=== PATIENT | male | born 1990 | race Caucasian/White ===

== ENCOUNTER 2019-06-23 17:34 | Inpatient (IN) | payer OTHER ==
[2019-06-24 08:58] LABS: ABS Basophils 0.1 10^3/ul (0-0.2); ABS Eosinophils 0.1 10^3/ul (0-0.6); ABS Lymphocytes 1.6 10^3/ul (1.0-4.8); ABS Monocytes 0.4 10^3/ul (0-0.8); Eosinophil % 1.3 %; Hematocrit 43 % (42-52); Hemoglobin 15.1 g/dL (14.0-18.0); Mean Corpuscular HGB Conc 35 g/dL (31-36); Mean Corpuscular Hemoglobin 31 pg (27-31); Mean Corpuscular Volume 89 fL (80-94); Mean Platelet Volume 8.3 fL (7.4-10.4); Nucleated Red Blood Cells % 0.1; Platelet Count 211 10^3/uL (150-450); Red Blood Count 4.86 10^6 /uL (4.18-5.48); Red Cell Distribution Width 13 % (10-15); White Blood Count 4.8 10^3/uL (3.5-10.8)
[2019-06-24 09:16] LABS: ALT 10 U/L (7-52); AST 11 U/L (13-39); Albumin 4.1 g/dL (3.2-5.2); Albumin/Globulin Ratio 1.6 (1-3); Alkaline Phosphatase 59 U/L (34-104); Anion Gap 7 mmol/L (2-11); BUN/Creatinine Ratio 27.4 (8-20); Blood Urea Nitrogen 17 mg/dL (6-24); CO2 Carbon Dioxide 25 mmol/L (22-32); Calcium 9.1 mg/dL (8.6-10.3); Chloride 107 mmol/L (101-111); EGFR African American 188.3 (>60); EGFR Non-African American 155.6 (>60); Globulin 2.5 g/dL (2-4); Glucose 79 mg/dL (70-100); Potassium 3.8 mmol/L (3.5-5.0); Sodium 139 mmol/L (135-145); Total Protein 6.6 g/dL (6.4-8.9)
[2019-06-24 09:25] LABS: Acetaminophen < 15 mcg/mL; Alcohol, S < 10 mg/dL (<10); Salicylate < 2.50 mg/dL (<30)
[2019-06-24 09:41] LABS: TSH (Thyroid Stimulating Horm) 1.03 mcIU/mL (0.34-5.60)
[2019-06-24 16:33] LABS: Urine Appearance Clear; Urine Bilirubin Negative (Negative); Urine Blood Negative (Negative); Urine Color Colorless; Urine Glucose Negative (Negative); Urine Ketones Negative (Negative); Urine Nitrite Negative (Negative); Urine Protein Negative (Negative); Urine Specific Gravity 1.001 (1.010-1.030); Urine Urobilinogen Negative (Negative)
[2019-06-24 16:46] LABS: Urine Benzodiazepine Screen None Detected (None Detect); Urine Opiates Screen None Detected (None Detect)
[2019-06-25] MEDS: Ondansetron ODT 4 mg TAB 4 MG TAB SL PRN (09:10)
[2019-06-27] MEDS: Fluoxetine LIQ 20 MG/5 ML UDC PO SCH (10:18)
[2019-06-27] MEDS: Ondansetron ODT 4 mg TAB 4 MG TAB SL PRN (22:50)
[2019-06-28] MEDS: Fluoxetine LIQ 20 MG/5 ML UDC PO SCH (11:40)
[2019-06-29] MEDS: Ondansetron ODT 4 mg TAB 4 MG TAB SL PRN ×2 (02:52→20:25)
[2019-06-29] MEDS ORDERED: Influenza VAC *QUAD* 2019-20* 0.5 ML SYRINGE IM ONE (09:00)
[2019-06-29] MEDS: Fluoxetine LIQ 20 MG/5 ML UDC PO SCH (09:53)
[2019-06-30] MEDS: Ondansetron ODT 4 mg TAB 4 MG TAB SL PRN (05:40)
[2019-06-30] MEDS: Fluoxetine LIQ 20 MG/5 ML UDC PO SCH (09:00)
[2019-07-01] MEDS: Fluoxetine LIQ 20 MG/5 ML UDC PO SCH (08:33)
[2019-07-02] MEDS: Fluoxetine LIQ 20 MG/5 ML UDC PO SCH (09:02)
[2019-07-03] MEDS: Fluoxetine LIQ 20 MG/5 ML UDC PO SCH (09:14)
[2019-07-03] MEDS: Ondansetron ODT 4 mg TAB 4 MG TAB SL PRN (21:21)
[2019-07-04] MEDS: Fluoxetine LIQ 20 MG/5 ML UDC PO SCH (08:24)
[2019-07-05] MEDS: Fluoxetine LIQ 20 MG/5 ML UDC PO SCH (10:59)
[2019-07-05] MEDS: Ondansetron ODT 4 mg TAB 4 MG TAB SL PRN (10:59)
[2019-07-06] MEDS: Fluoxetine LIQ 20 MG/5 ML UDC PO SCH (09:45)
[2019-07-07] MEDS: Fluoxetine LIQ 20 MG/5 ML UDC PO SCH (09:07)
[2019-07-08] MEDS: Fluoxetine LIQ 20 MG/5 ML UDC PO SCH (10:14)
[2019-07-09] MEDS: Fluoxetine LIQ 20 MG/5 ML UDC PO SCH (08:06)
[2019-07-10] MEDS: Fluoxetine LIQ 20 MG/5 ML UDC PO SCH (07:34)
[2019-07-11] MEDS: Fluoxetine LIQ 20 MG/5 ML UDC PO SCH (08:03)
[2019-07-12] MEDS: Fluoxetine LIQ 20 MG/5 ML UDC PO SCH (09:35)
[2019-07-13] MEDS: Fluoxetine LIQ 20 MG/5 ML UDC PO SCH (08:05)
[2019-07-14] MEDS: Fluoxetine LIQ 20 MG/5 ML UDC PO SCH (07:21)
[2019-07-15] MEDS: Fluoxetine LIQ 20 MG/5 ML UDC PO SCH (08:44)
[2019-07-16] MEDS: Fluoxetine LIQ 20 MG/5 ML UDC PO SCH (09:10)
[2019-07-17] MEDS: Fluoxetine LIQ 20 MG/5 ML UDC PO SCH (11:45)
[2019-07-18] MEDS: Fluoxetine LIQ 20 MG/5 ML UDC PO SCH (09:40)
[2019-07-19] MEDS: Fluoxetine LIQ 20 MG/5 ML UDC PO SCH (08:41)
[2019-07-20] MEDS: Fluoxetine LIQ 20 MG/5 ML UDC PO SCH (07:33)
[2019-07-21] MEDS: Fluoxetine LIQ 20 MG/5 ML UDC PO SCH (07:33)
[2019-07-22] MEDS: Fluoxetine LIQ 20 MG/5 ML UDC PO SCH (10:05)
[2019-07-22] MEDS: Ondansetron ODT 4 mg TAB 4 MG TAB SL PRN (12:06)
[2019-07-23] MEDS: Fluoxetine LIQ 20 MG/5 ML UDC PO SCH (08:04)
[2019-07-24] MEDS: Fluoxetine LIQ 20 MG/5 ML UDC PO SCH (09:08)
[2019-07-25] MEDS: Fluoxetine LIQ 20 MG/5 ML UDC PO SCH (08:56)
[2019-07-26] MEDS: Fluoxetine LIQ 20 MG/5 ML UDC PO SCH (08:14)
[2019-07-27] MEDS: Fluoxetine LIQ 20 MG/5 ML UDC PO SCH (09:05)
[2019-07-28] MEDS: Fluoxetine LIQ 20 MG/5 ML UDC PO SCH (11:00)
[2019-07-29] MEDS: Fluoxetine LIQ 20 MG/5 ML UDC PO SCH (09:32)
[2019-07-30] MEDS: Fluoxetine LIQ 20 MG/5 ML UDC PO SCH (08:39)
[2019-07-31] MEDS: Fluoxetine LIQ 20 MG/5 ML UDC PO SCH (09:49)
[2019-08-01] MEDS: Fluoxetine LIQ 20 MG/5 ML UDC PO SCH (07:16)
[2019-08-01] MEDS ORDERED: Lorazepam PYXIS KEY ONE (09:42)
[2019-08-02] MEDS: Fluoxetine LIQ 20 MG/5 ML UDC PO SCH (08:50)
[2019-08-03] MEDS: Ondansetron ODT 4 mg TAB 4 MG TAB SL PRN (02:57)
[2019-08-03] MEDS: Fluoxetine LIQ 20 MG/5 ML UDC PO SCH (09:29)
[2019-08-04] MEDS: Fluoxetine LIQ 20 MG/5 ML UDC PO SCH (08:38)
[2019-08-05] MEDS: Fluoxetine LIQ 20 MG/5 ML UDC PO SCH (08:04)
[2019-08-05] MEDS: Ondansetron ODT 4 mg TAB 4 MG TAB SL PRN (21:49)
[2019-08-06] MEDS: Fluoxetine LIQ 20 MG/5 ML UDC PO SCH (07:29)
[2019-08-07] MEDS: Fluoxetine LIQ 20 MG/5 ML UDC PO SCH (09:18)
[2019-08-07] MEDS: Ondansetron ODT 4 mg TAB 4 MG TAB SL PRN (20:10)
[2019-08-08] MEDS: Fluoxetine LIQ 20 MG/5 ML UDC PO SCH (08:05)
[2019-08-09] MEDS: Fluoxetine LIQ 20 MG/5 ML UDC PO SCH (08:28)
[2019-08-10] MEDS: Fluoxetine LIQ 20 MG/5 ML UDC PO SCH (07:51)
[2019-08-11] MEDS: Fluoxetine LIQ 20 MG/5 ML UDC PO SCH (07:49)
[2019-08-12] MEDS: Fluoxetine LIQ 20 MG/5 ML UDC PO SCH (09:08)
[2019-08-13] MEDS: Fluoxetine LIQ 20 MG/5 ML UDC PO SCH (08:00)
[2019-08-14] MEDS: Fluoxetine LIQ 20 MG/5 ML UDC PO SCH (08:09)
[2019-08-15] MEDS: Fluoxetine LIQ 20 MG/5 ML UDC PO SCH (08:50)
[2019-08-16] MEDS: Fluoxetine LIQ 20 MG/5 ML UDC PO SCH (07:58)
[2019-08-17] MEDS: Fluoxetine LIQ 20 MG/5 ML UDC PO SCH (08:13)
[2019-08-18] MEDS: Fluoxetine LIQ 20 MG/5 ML UDC PO SCH (08:50)
[2019-08-19] MEDS: Fluoxetine LIQ 20 MG/5 ML UDC PO SCH (10:26)
[2019-08-20] MEDS: Fluoxetine LIQ 20 MG/5 ML UDC PO SCH (10:15)
[2019-08-21] MEDS: Fluoxetine LIQ 20 MG/5 ML UDC PO SCH (08:08)
[2019-08-22] MEDS: Fluoxetine LIQ 20 MG/5 ML UDC PO SCH (07:23)
[2019-08-23] MEDS: Fluoxetine LIQ 20 MG/5 ML UDC PO SCH (07:58)
[2019-08-24] MEDS: Fluoxetine LIQ 20 MG/5 ML UDC PO SCH (08:01)
[2019-08-24] MEDS ORDERED: Lorazepam PYXIS KEY ONE (10:08)
[2019-08-25] MEDS: Fluoxetine LIQ 20 MG/5 ML UDC PO SCH (10:07)
[2019-08-26] MEDS: Fluoxetine LIQ 20 MG/5 ML UDC PO SCH (08:51)
[2019-08-27] MEDS: Fluoxetine LIQ 20 MG/5 ML UDC PO SCH (08:51)
[2019-08-28] MEDS: Fluoxetine LIQ 20 MG/5 ML UDC PO SCH (08:00)
[2019-08-29] MEDS: Fluoxetine LIQ 20 MG/5 ML UDC PO SCH (09:12)
[2019-08-30] MEDS: Fluoxetine LIQ 20 MG/5 ML UDC PO SCH (09:06)
[2019-08-31] MEDS: Fluoxetine LIQ 20 MG/5 ML UDC PO SCH (07:43)
[2019-09-01] MEDS: Fluoxetine LIQ 20 MG/5 ML UDC PO SCH (07:56)
[2019-09-02] MEDS: Fluoxetine LIQ 20 MG/5 ML UDC PO SCH (10:19)
[2019-09-03] MEDS: Fluoxetine LIQ 20 MG/5 ML UDC PO SCH (09:02)
[2019-09-04] MEDS: Fluoxetine LIQ 20 MG/5 ML UDC PO SCH (08:00)
[2019-09-05] MEDS: Fluoxetine LIQ 20 MG/5 ML UDC PO SCH (09:14)
[2019-09-06] MEDS: Fluoxetine LIQ 20 MG/5 ML UDC PO SCH (09:15)
[2019-09-07] MEDS: Fluoxetine LIQ 20 MG/5 ML UDC PO SCH (07:42)
[2019-09-08] MEDS: Fluoxetine LIQ 20 MG/5 ML UDC PO SCH (08:10)
[2019-09-09] MEDS: Fluoxetine LIQ 20 MG/5 ML UDC PO SCH (07:46)
[2019-09-10] MEDS: Fluoxetine LIQ 20 MG/5 ML UDC PO SCH (09:12)
[2019-09-11] MEDS: Fluoxetine LIQ 20 MG/5 ML UDC PO SCH (08:18)
[2019-09-12] MEDS: Fluoxetine LIQ 20 MG/5 ML UDC PO SCH (09:10)
[2019-09-13] MEDS: Fluoxetine LIQ 20 MG/5 ML UDC PO SCH (08:29)
[2019-09-14] MEDS: Fluoxetine LIQ 20 MG/5 ML UDC PO SCH (07:37)
[2019-09-15] MEDS: Fluoxetine LIQ 20 MG/5 ML UDC PO SCH (08:53)
[2019-09-16] MEDS: Fluoxetine LIQ 20 MG/5 ML UDC PO SCH (08:05)
[2019-09-17] MEDS: Fluoxetine LIQ 20 MG/5 ML UDC PO SCH (08:16)
[2019-09-18] MEDS: Fluoxetine LIQ 20 MG/5 ML UDC PO SCH (09:21)
[2019-09-19] MEDS: Fluoxetine LIQ 20 MG/5 ML UDC PO SCH (07:54)
[2019-09-20] MEDS: Fluoxetine LIQ 20 MG/5 ML UDC PO SCH (07:16)
[2019-09-21] MEDS: Fluoxetine LIQ 20 MG/5 ML UDC PO SCH (07:14)
[2019-09-22] MEDS: Fluoxetine LIQ 20 MG/5 ML UDC PO SCH (07:36)
[2019-09-23] MEDS: Fluoxetine LIQ 20 MG/5 ML UDC PO SCH (07:23)
[2019-09-23] MEDS ORDERED: PPD Reading NOTE 1 EA MISC ONE (12:18)
[2019-09-23] MEDS ORDERED: PPD test dose* 5 TU/0.1 ML TEST (*USE PPD ORDER SET*) INTRADERM SCH (13:00)
[2019-09-24] MEDS: Fluoxetine LIQ 20 MG/5 ML UDC PO SCH (09:03)
[2019-09-25] MEDS ORDERED: PPD Reading 48-72 HRS NOTE SCH (06:00)
[2019-09-25] MEDS: Fluoxetine LIQ 20 MG/5 ML UDC PO SCH (08:02)
[2019-09-25] MEDS ORDERED: PPD test dose* 5 TU/0.1 ML TEST (*USE PPD ORDER SET*) INTRADERM ONE (09:00)
[2019-09-25] MEDS ORDERED: Lorazepam PYXIS KEY ONE (09:54)
[2019-09-26] MEDS: Fluoxetine LIQ 20 MG/5 ML UDC PO SCH (07:24)
[2019-09-27] MEDS: Fluoxetine LIQ 20 MG/5 ML UDC PO SCH (08:43)
[2019-09-27] MEDS ORDERED: PPD Reading NOTE 1 EA MISC ONE (10:00)
[2019-09-28] MEDS: Fluoxetine LIQ 20 MG/5 ML UDC PO SCH (07:51)
[2019-09-29] MEDS: Fluoxetine LIQ 20 MG/5 ML UDC PO SCH (08:33)
[2019-09-30] MEDS: Fluoxetine LIQ 20 MG/5 ML UDC PO SCH (08:43)
[2019-10-01] MEDS: Fluoxetine LIQ 20 MG/5 ML UDC PO SCH (07:56)
[2019-10-02] MEDS: Fluoxetine LIQ 20 MG/5 ML UDC PO SCH (09:14)
[2019-10-03] MEDS: Fluoxetine LIQ 20 MG/5 ML UDC PO SCH (08:35)
[2019-10-04] MEDS: Fluoxetine LIQ 20 MG/5 ML UDC PO SCH (08:00)
[2019-10-05] MEDS: Fluoxetine LIQ 20 MG/5 ML UDC PO SCH (07:30)
[2019-10-06] MEDS: Fluoxetine LIQ 20 MG/5 ML UDC PO SCH (08:46)
[2019-10-07] MEDS: Fluoxetine LIQ 20 MG/5 ML UDC PO SCH (07:32)
[2019-10-08] MEDS: Fluoxetine LIQ 20 MG/5 ML UDC PO SCH (07:35)
[2019-10-09] MEDS: Fluoxetine LIQ 20 MG/5 ML UDC PO SCH (07:48)
[2019-10-10] MEDS: Fluoxetine LIQ 20 MG/5 ML UDC PO SCH (07:56)
[2019-10-11] MEDS: Fluoxetine LIQ 20 MG/5 ML UDC PO SCH (08:01)
[2019-10-12] MEDS: Fluoxetine LIQ 20 MG/5 ML UDC PO SCH (07:26)
[2019-10-13] MEDS: Fluoxetine LIQ 20 MG/5 ML UDC PO SCH (07:57)
[2019-10-14] MEDS: Fluoxetine LIQ 20 MG/5 ML UDC PO SCH (07:54)
[2019-10-15] MEDS: Fluoxetine LIQ 20 MG/5 ML UDC PO SCH (07:37)
[2019-10-16] MEDS: Fluoxetine LIQ 20 MG/5 ML UDC PO SCH (07:49)
[2019-10-17] MEDS: Fluoxetine LIQ 20 MG/5 ML UDC PO SCH (07:33)
[2019-10-18] MEDS: Fluoxetine LIQ 20 MG/5 ML UDC PO SCH (07:43)
[2019-10-19] MEDS: Fluoxetine LIQ 20 MG/5 ML UDC PO SCH (08:11)
[2019-10-20] MEDS: Fluoxetine LIQ 20 MG/5 ML UDC PO SCH (07:45)
[2019-10-21] MEDS: Fluoxetine LIQ 20 MG/5 ML UDC PO SCH (08:05)
[2019-10-22] MEDS: Fluoxetine LIQ 20 MG/5 ML UDC PO SCH (07:58)
[2019-10-23] MEDS: Fluoxetine LIQ 20 MG/5 ML UDC PO SCH (08:20)
[2019-10-24] MEDS: Fluoxetine LIQ 20 MG/5 ML UDC PO SCH (07:47)
[2019-10-25] MEDS: Fluoxetine LIQ 20 MG/5 ML UDC PO SCH (08:41)
[2019-10-26] MEDS: Fluoxetine LIQ 20 MG/5 ML UDC PO SCH (07:42)
[2019-10-26 07:57] VITALS: BP 115/71
== END 2019-10-26 13:00 | disposition home or self-care (01) | DRG 758 ==
LOC: ED 17:34 → MED 06-24 15:24 → MEDTELE 07-23 18:33 → MED 09-27 06:34
PROVIDERS: ADMIT Internal Medicine; ATTEND Internal Medicine